=== PATIENT | female | born 1950 | race Two or more races ===

== ENCOUNTER 2017-02-23 15:22 | Inpatient (IN) | payer MEDICARE, OTHER ==
[2017-02-23] MEDS ORDERED: SODIUM CHLORIDE 0.9% 1,000 ML ONE ×4 (15:35→17:41)
[2017-02-23 16:09] LABS: ABSOLUTE NEUTROPHIL COUNT 27.7 K/mm3 (1.8-7.7); BASO % 0.1 % (0.2-1.0); EOS % 0.1 % (0.9-2.9); HEMATOCRIT 30.6 % (37.0-47.0); HEMOGLOBIN 10.2 gm/l (12.0-16.0); IMM NEUT # 5.2 K/mm3 (0-0.2); IMM NEUT% 13.8 % (0-1); LYMPH # 4.3 (1.0-4.8); LYMPH % 11.3 % (15-45); MEAN CELL VOLUME 92.2 fl (81.0-99.0); MEAN CORPUSCULAR HEMOGLOBIN 30.7 pg (27.0-31.0); MEAN CORPUSCULAR HGB CONC 33.3 g/dl (33.0-37.0); MEAN PLATELET VOLUME 10.2 fl (7.4-10.4); MONO # 0.3 (0.0-0.8); MONO % 0.9 % (4-12); NEUT % 73.8 % (43-75); PLATELET COUNT 201 K/mm3 (130-400); RED CELL DISTRIBUTION WIDTH 19.9 % (11.5-14.5)
[2017-02-23 16:13] LABS: INR 0.96; PROTHROMBIN TIME 10.1 SECONDS (9.3-11.4)
[2017-02-23 16:24] LABS: ALB/GLOB RATIO 1.2 (>1.0); ALBUMIN 3.6 gm/dL (3.5-5.7); CALCIUM 8.7 mg/dL (8.6-10.3)
[2017-02-23] MEDS ORDERED: Cefepime HCl 2 G in NS 0.9% (MINI-BAG PLUS) 50 ML IV ONE ×2 (16:45→17:45)
[2017-02-23] MEDS ORDERED: Cefepime HCl 2 G in SODIUM CHLORIDE 0.9% 50 ML IV ONE (16:45)
[2017-02-23 17:09] LABS: SPECIFIC GRAVITY 1.015 (1.001-1.030); URINE BILIRUBIN NEGATIVE (NEGATIVE); URINE BLOOD 1+ (NEGATIVE); URINE GLUCOSE (UA) NEGATIVE (NEGATIVE); URINE LEUKOCYTE ESTERASE TRACE (NEGATIVE); URINE NITRITE NEGATIVE (NEGATIVE); URINE PROTEIN 2+ (NEGATIVE); URINE UROBILINOGEN NORMAL (0-1 mg/dl)
[2017-02-23 17:11] LABS: URINE APPEARANCE HAZY; URINE COLOR YELLOW
[2017-02-23 17:22] LABS: URINE BACTERIA 2+; URINE RBC 0-1 /hpf; URINE WBC 30-40 /hpf
--- NOTE | 2017-02-23 17:32 | RAD ---
CHEST-AP BEDSIDE COMPARISON: Chest 2 views, 04/17/2016 HISTORY: Dizziness and rapid heart rate. FINDINGS: Views: Frontal chest. Lungs: Lungs are clear. Heart and vessels: Normal Trachea and bronchi: Normal Mediastinum and tino: Normal Costophrenic sulci: Normal Chest wall and bones: Surgical clips in the right chest. There is a Port-A-Cath. Upper abdomen: Normal. IMPRESSION: No acute finding. There is a Port-A-Cath in expected position.
[2017-02-23] MEDS ORDERED: MAGNESIUM HYDROXIDE 30 ML UDCUP PO PRN (17:39)
[2017-02-23] MEDS ORDERED: SODIUM CHLORIDE 0.9% 100 ML IV PRN (17:39)
[2017-02-23] MEDS ORDERED: BLISTEX LIPSTICK 1 EACH TP PRN (17:39)
[2017-02-23] MEDS ORDERED: BISACODYL 10 MG SUP PR PRN (17:39)
[2017-02-23] MEDS ORDERED: MENTHOL/CETYLPYRD 1 EACH LOZENGE PO PRN (17:39)
[2017-02-23] MEDS ORDERED: BISACODYL 5 MG TABLET.EC PO PRN (17:39)
[2017-02-23] MEDS ORDERED: PUMP TUBING ONE ×3 (17:41→22:17)
[2017-02-23] MEDS ORDERED: SODIUM CHLORIDE 0.9% 1,000 ML IV SCH ×2 (17:51→21:15)
[2017-02-23 17:56] LABS: ANISOCYTOSIS 1+; BAND 4 % (0-10); BASOPHIL 0 % (0-1); EOSINOPHIL 0 % (1-3); LYMPHOCYTE 14 % (15-45); MONOCYTE 2 % (4-12); NEUTROPHILS 71 % (43-75); PLATELET ESTIMATE NORMAL (NORMAL); TOTAL CELLS COUNTED 100
[2017-02-23 17:57] LABS: METAMYELOCYTE 9 %; NUCLEATED RED BLOOD CELL 1 /100 WBC; ORDER PATH REVIEW YES
[2017-02-23 17:58] VITALS: BMI 28.0
[2017-02-23] MEDS ORDERED: MAGNESIUM SULFATE 2 G/50 ML 2 G in Premix (Water) 50 ml 1 EACH IV ONE (18:10)
[2017-02-23] MEDS: SODIUM CHLORIDE 0.9% 1,000 ML IV SCH (18:15)
[2017-02-23] MEDS ORDERED: ONDANSETRON 4 MG/2ML 2 ML VIAL IV PRN (18:21)
[2017-02-23] MEDS: ENOXAPARIN SODIUM 40 MG/0.4 ML SYRINGE SUB-Q SCH (19:16)
[2017-02-23 20:40] LABS: CALCIUM 7.5 mg/dL (8.6-10.3)
[2017-02-23] MEDS: BUSPIRONE HCL 5 MG TABLET PO SCH (20:44)
[2017-02-23] MEDS: ACETAMINOPHEN 325 MG TABLET PO PRN (20:44)
[2017-02-23] MEDS ORDERED: VANCOMYCIN HCL 0 G in SODIUM CHLORIDE 0.9% 250 ML IV SCH (21:15)
[2017-02-23] MEDS ORDERED: VANCOMYCIN HCL 1.5 G in SODIUM CHLORIDE 0.9% 500 ML IV ONE (22:00)
[2017-02-23] MEDS: [UNRECOGNIZED DRUG - OTHER] PO PRN (22:20)
[2017-02-23] MEDS: NOREPINEPHRINE BITARTRATE 4 MG in D5W 246 ML IV PRN (22:20)
[2017-02-23] MEDS: ATROP PO PRN (22:20)
[2017-02-23] MEDS: MUPIROCIN CALCIUM 2% OINT 22 APPLIC/22 G TUBE TP SCH (22:48)
[2017-02-24] MEDS: [UNRECOGNIZED DRUG - OTHER] PO PRN ×2 (02:03→05:54)
[2017-02-24] MEDS: ATROP PO PRN ×2 (02:03→05:54)
[2017-02-24] MEDS: SODIUM CHLORIDE 0.9% 1,000 ML IV SCH ×3 (02:41→18:10)
[2017-02-24 05:50] LABS: ABSOLUTE NEUTROPHIL COUNT 20.3 K/mm3 (1.8-7.7); BASO % 0.1 % (0.2-1.0); EOS # 0.1 (0.0-0.5); EOS % 0.3 % (0.9-2.9); HEMATOCRIT 25.5 % (37.0-47.0); HEMOGLOBIN 8.5 gm/l (12.0-16.0); IMM NEUT # 6.5 K/mm3 (0-0.2); IMM NEUT% 21.6 % (0-1); LYMPH # 2.6 (1.0-4.8); LYMPH % 8.8 % (15-45); MEAN CELL VOLUME 93.1 fl (81.0-99.0); MEAN CORPUSCULAR HGB CONC 33.3 g/dl (33.0-37.0); MEAN PLATELET VOLUME 10.6 fl (7.4-10.4); MONO # 0.5 (0.0-0.8); MONO % 1.7 % (4-12); NEUT % 67.5 % (43-75); PLATELET COUNT 175 K/mm3 (130-400); RED CELL DISTRIBUTION WIDTH 19.9 % (11.5-14.5)
[2017-02-24] MEDS: Cefepime HCl 1 G in NS 0.9% (MINI-BAG PLUS) 50 ML IV SCH ×2 (05:53→17:25)
[2017-02-24 06:19] LABS: ALB/GLOB RATIO 1.2 (>1.0); CALCIUM 7.7 mg/dL (8.6-10.3)
[2017-02-24 06:55] LABS: ANISOCYTOSIS 3+; BAND 4 % (0-10); BASOPHIL 0 % (0-1); EOSINOPHIL 0 % (1-3); LYMPHOCYTE 9 % (15-45); MONOCYTE 3 % (4-12); NEUTROPHILS 84 % (43-75); PLATELET ESTIMATE NORMAL (NORMAL); TOTAL CELLS COUNTED 100
[2017-02-24] MEDS: NOREPINEPHRINE BITARTRATE 4 MG in D5W 246 ML IV PRN ×3 (07:38→14:20)
--- NOTE | 2017-02-24 08:03 | PDOC43 ---
- Subjective Chief Complaint: Sepsis Subjective: Reports Pain Tolerable, Reports Fever, Denies Abdominal Pain, Denies Nausea, Denies Vomiting - Objective Vital Signs Temperature 98.6 F 02/24/17 07:12 Pulse Rate 63 02/24/17 07:12 Respiratory Rate 17 02/24/17 07:12 Blood Pressure 108/62 02/24/17 07:12 O2 Saturation by Pulse Oximetry 99 02/24/17 07:12 Oxygen Delivery Method Nasal Cannula Oxygen Flow Rate 1 Intake and Output 02/22/17 02/23/17 02/24/17 23:59 23:59 23:59 Intake Total 3500 3159 Output Total 965 2050 Balance 2535 1109 General: Alert, Oriented x3, Cooperative, No Acute Distress Lungs: Clear to Auscultation Bilaterally, Normal Air Movement, Diminished at Bases Cardiovascular: Regular Rate and Rhythm, Normal S1, Normal S2 Abdomen: Soft, Tenderness, Normal Bowel Sounds Extremities: Normal Cap Refill, Normal Pulses, No Edema Skin: Normal Color, Warm, Dry Psych/Mental Status: Normal Affect, Normal Mood Laboratory 02/24/17 05:15 02/24/17 05:15 02/24/17 02/24/17 02/23/17 07:08 05:15 20:47 RBC 2.74 L RDW 19.9 H Estimated GFR 124 H POC Capillary Glucose 125 H 138 H Calcium 7.7 L Magnesium 1.4 L Total Protein 5.5 L Albumin 3.0 L % Immature Granulocyt 21.6 H 02/23/17 20:04 RBC RDW Estimated GFR 100 H POC Capillary Glucose Calcium 7.5 L Magnesium Total Protein Albumin % Immature Granulocyt Current Medications: Current meds reviewed in EMR. - Problems: Assessment/Plan (1) Cellulitis Qualifiers: Site of cellulitis: other site Qualifier Code: (L03.818) Cellulitis of other sites Status: AcuteAssessment/Plan: Umbilicus Broadly covered given sepsis, apslenia and chemotherapy (2) Chemotherapy induced diarrhea Status: AcuteAssessment/Plan: Has lomotil prn (3) Chemotherapy induced nausea and vomiting Status: AcuteAssessment/Plan: Has prn Zofran (4) Complicated UTI (urinary tract infection) Status: AcuteAssessment/Plan: Complicated by immuncompromise. Broad coverage with Cefepime, culture pending (5) Hypomagnesemia Status: AcuteAssessment/Plan: replete prn (6) Sepsis Qualifiers: Sepsis type: sepsis due to unspecified organism Qualifier Code: (A41.9 ) Sepsis, unspecified organism Status: AcuteAssessment/Plan: Support pressures, broad antibiotic coverage, lactate has now resolved (7) Asplenia Status: Chronic (8) Diabetes type 2, controlled Status: ChronicAssessment/Plan: SSI for now. Home actos, metformin held (9) Paroxysmal SVT (supraventricular tachycardia) Status: ChronicAssessment/Plan: currently sinus VTE Prophylaxis: ICP, Lovenox Disposition: ICU through today, likely step down to MS tomorrow and then d/c in 1-3 days depending on cultures and condition
[2017-02-24] MEDS: BUSPIRONE HCL 5 MG TABLET PO SCH ×2 (08:23→20:09)
[2017-02-24] MEDS: MUPIROCIN CALCIUM 2% OINT 22 APPLIC/22 G TUBE TP SCH ×3 (08:39→20:10)
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
[2017-02-24] MEDS ORDERED: MAGNESIUM SULFATE 2 G/50 ML 2 G in Premix (Water) 50 ml 1 EACH IV ONE (09:00)
[2017-02-24] MEDS ORDERED: PNEUMOCOCCAL 23-VAL P-SAC VAC 0.5 ML VIAL IM V ONE (09:00)
[2017-02-24] MEDS: INSULIN ASPART (DOSE) 100 UNITS/1 ML SUB-Q PRN ×2 (11:05→17:25)
[2017-02-24] MEDS: ACETAMINOPHEN 325 MG TABLET PO PRN (11:48)
[2017-02-24] MEDS: ENOXAPARIN SODIUM 40 MG/0.4 ML SYRINGE SUB-Q SCH (17:00)
--- NOTE | 2017-02-24 20:16 | PDOC36 ---
Provider Note Subject: SVT Note: Informed of episode x 40 s of SVT, up to 180. Pt reports having some similar episodes at home at times. She reports not feeling particularly bad, just noting a rapid HR. Pt has received 2 g x 2 of Magnesium, plus 8L of fluids. Patient reports she is feeling fine currently (and eager to go home), but has had more of these tachycardic episodes since starting chemotherapy. Did have an echo 3+ mo ago, possibly another more recently. She had been on atenolol, but this was stopped due to low BP on admission. She is still on Levophed, currently at 1 mcg/min, (SVT occurred when she was at 2 mcg/min). Will recheck BMP, TSH, Mg, CXR. Check BNP, echo, and troponin, keeping aware that the SVT or chemo could raise troponin. Discussed with Dr Brown, he notes that the more common side effects of her chemo would be gastroenterologic/ dehydration related. Patient has had significant IV fluids both days, and today's urinary output appears good as well. Will add low dose metoprolol (her atenolol was held on admission) to try to address SVT.
--- NOTE | 2017-02-24 20:21 | RAD ---
EXAMINATION : CHEST-AP BEDSIDE HISTORY: Elevated white count. Supraventricular tachycardia. COMPARISONS: 02/23/2017. FINDINGS: The cardiomediastinal silhouette is unaltered. No acute infiltrate is identified. Blunting of left costophrenic sulcus is similar to the prior study. The osseous structures are within normal limits. Vascular catheter is stable in position. IMPRESSION: Stable findings in the chest with no acute process identified. Slight effacement of the left costophrenic sulcus which may reflect a small effusion versus peripheral scarring is unaltered.
[2017-02-24 20:49] LABS: CALCIUM 8.2 mg/dL (8.6-10.3); MAGNESIUM 1.9 mg/dL (1.9-2.7)
[2017-02-24] MEDS: METOPROLOL TARTRATE 25 MG TABLET PO SCH (20:50)
[2017-02-24] MEDS ORDERED: POTASSIUM CHLORIDE 40 MEQ in SODIUM CHLORIDE 0.9% 500 ML IV ONE (21:21)
[2017-02-24] MEDS ORDERED: PUMP TUBING ONE (21:48)
[2017-02-24] MEDS: VANCOMYCIN HCL 1.25 G in SODIUM CHLORIDE 0.9% 250 ML IV SCH (21:52)
[2017-02-25] MEDS ORDERED: ALBUTEROL NEB 2.5 MG/3 ML VIAL.NEB NEB ONE (01:17)
[2017-02-25] MEDS ORDERED: GUAIFENESIN 100 MG/5 ML PO PRN (01:20)
[2017-02-25] MEDS: ALBUTEROL NEB 2.5 MG/3 ML VIAL.NEB NEB PRN ×4 (01:24→21:50)
[2017-02-25] MEDS: Cefepime HCl 1 G in NS 0.9% (MINI-BAG PLUS) 50 ML IV SCH ×2 (05:07→17:01)
[2017-02-25 05:21] LABS: ABSOLUTE NEUTROPHIL COUNT 10.4 K/mm3 (1.8-7.7); BASO % 0.1 % (0.2-1.0); EOS # 0.1 (0.0-0.5); EOS % 0.8 % (0.9-2.9); HEMATOCRIT 23.4 % (37.0-47.0); IMM NEUT # 0.2 K/mm3 (0-0.2); IMM NEUT% 1.1 % (0-1); LYMPH # 2.4 (1.0-4.8); LYMPH % 17.8 % (15-45); MEAN CELL VOLUME 91.4 fl (81.0-99.0); MEAN CORPUSCULAR HEMOGLOBIN 31.3 pg (27.0-31.0); MEAN CORPUSCULAR HGB CONC 34.2 g/dl (33.0-37.0); MEAN PLATELET VOLUME 10.2 fl (7.4-10.4); MONO # 0.3 (0.0-0.8); MONO % 2.4 % (4-12); NEUT % 77.8 % (43-75); PLATELET COUNT 172 K/mm3 (130-400); RED CELL DISTRIBUTION WIDTH 19.6 % (11.5-14.5)
[2017-02-25 05:45] LABS: CALCIUM 8.3 mg/dL (8.6-10.3); MAGNESIUM 1.5 mg/dL (1.9-2.7)
[2017-02-25] MEDS ORDERED: MAGNESIUM SULFATE 2 G/50 ML 2 G in Premix (Water) 50 ml 1 EACH IV ONE (06:23)
[2017-02-25] MEDS ORDERED: ATROP PO PRN ×2 (06:24→06:49)
[2017-02-25] MEDS ORDERED: [UNRECOGNIZED DRUG - OTHER] PO PRN ×2 (06:24→06:49)
[2017-02-25] MEDS: SODIUM CHLORIDE 0.9% 1,000 ML IV SCH (06:26)
[2017-02-25 06:32] LABS: ANISOCYTOSIS 2+; BAND 7 % (0-10); BASOPHIL 0 % (0-1); EOSINOPHIL 0 % (1-3); LYMPHOCYTE 31 % (15-45); MONOCYTE 2 % (4-12); NEUTROPHILS 60 % (43-75); PLATELET ESTIMATE NORMAL (NORMAL); TOTAL CELLS COUNTED 100
--- NOTE | 2017-02-25 06:47 | PDOC43 ---
- Subjective Chief Complaint: Sepsis in setting of chemotherapy RN reports pt off levophed >8hr, has had some good improvement in cough with nebulizer. Pt would like Vega out. Taking orals well, still on IV NS at 125. Pt has not had further marked tachycardia (had been up to 180s), seems to have tolerated the metoprolol fine. Also got IV rider potassium, Mg yesterday. Patient reports feeling well, is eager to go home. Does note some L foot pain in heel and 5th metatarsal. - Objective Vital Signs Temperature 99.2 F 02/25/17 06:00 Pulse Rate 85 02/25/17 06:03 Respiratory Rate 18 02/25/17 06:03 Blood Pressure 92/49 02/25/17 06:00 O2 Saturation by Pulse Oximetry 100 02/25/17 06:03 Oxygen Delivery Method Nasal Cannula Oxygen Flow Rate 1 Vital Signs Last 12 Hours Temp Pulse Resp BP Pulse Ox 02/25/17 06:03 85 18 100 02/25/17 06:00 99.2 F 88 20 92/49 98 02/25/17 05:30 99 F 80 14 113/53 98 02/25/17 05:00 99 F 75 15 108/50 97 02/25/17 04:00 99.1 F 68 15 101/56 100 02/25/17 03:00 99.1 F 69 15 116/47 99 02/25/17 02:00 99.3 F 70 16 100/48 95 02/25/17 01:36 99.5 F 78 18 97 02/25/17 01:21 79 12 99 02/25/17 01:00 99.3 F 82 18 114/47 100 02/25/17 00:35 99.3 F 73 17 106/52 98 02/25/17 00:00 99.2 F 80 15 109/55 100 02/24/17 23:34 99.1 F 70 16 106/51 100 02/24/17 23:00 99.2 F 73 16 117/52 98 02/24/17 22:41 99.2 F 74 18 114/56 98 02/24/17 22:00 99.4 F 83 16 100/53 97 02/24/17 21:14 82 17 96 02/24/17 21:00 99.5 F 90 18 102/57 90 02/24/17 20:36 100 02/24/17 20:00 97 18 107/88 100 02/24/17 19:50 18 02/24/17 19:00 98.9 F 72 16 100/50 99 Intake and Output 02/23/17 02/24/17 02/25/17 23:59 23:59 23:59 Intake Total 3500 5301 2020 Output Total 965 4825 3050 Balance 2532 437 -1027 Intake & Output 02/24/17 02/24/17 02/25/17 15:59 23:59 07:59 Intake Total 54 2087 2020 Output Total 1575 1200 3050 Balance -1521 888 -1029 Intake: PO Intake 200 IV Fluids 54 2087 1820 Output: Vega Output 1575 1200 3050 Other: Unmeasured Stool Amount Medium Small Number of Stools 1 1 General: Alert, Cooperative, No Acute Distress HEENT: Atraumatic Lungs: Other (expir wheeze noted bilat.NO crackles heard.) Cardiovascular: Regular Rate and Rhythm, No Murmur Abdomen: Soft, Normal Bowel Sounds, Other (small (<1 cm) break in skin, linear appearing erosion, oriented vertically, inf to umbilicus. Mild erythema noted, mupirocin on. No fluctuance or abscess evident.), No Tenderness Extremities: Other (Mild tinea, but no redness, no bony abnormality, no swelling evident.), No Edema (no edema to trace edema bilat lower extrem.) Skin: Normal Color (sl pale, c/w anemia.) Neurological: Normal Speech Psych/Mental Status: Normal Affect, Other (very upbeat, very pleasant) Laboratory 02/25/17 05:00 02/25/17 05:00 02/25/17 02/24/17 02/24/17 05:00 20:50 20:20 RBC 2.56 L MCH 31.3 H RDW 19.6 H BUN 5 L Estimated GFR 223 H POC Capillary Glucose 103 H Calcium 8.3 L Magnesium 1.5 L B-Natriuretic Peptide 123 H Total Protein Albumin % Immature Granulocyt 1.1 H 02/24/17 02/24/17 02/24/17 19:40 17:13 10:53 RBC MCH RDW BUN Estimated GFR 124 H POC Capillary Glucose 179 H 170 H Calcium 8.2 L Magnesium B-Natriuretic Peptide Total Protein Albumin % Immature Granulocyt 02/24/17 02/24/17 07:08 05:15 RBC MCH RDW BUN Estimated GFR 124 H POC Capillary Glucose 125 H Calcium 7.7 L Magnesium 1.4 L B-Natriuretic Peptide Total Protein 5.5 L Albumin 3.0 L % Immature Granulocyt Current Medications: Current meds reviewed in EMR. Active Medications Acetaminophen (Tylenol) 650 mg PO Q6H PRN PRN Reason: Pain or Temperature > 100.5 F Last Admin: 02/24/17 11:48 Dose: 650 mg Albuterol Sulfate (Ventolin Inhalation Solution (Dose)) 2.5 mg NEB Q4H PRN PRN Reason: Wheezing Last Admin: 02/25/17 06:03 Dose: 2.5 mg Benzocaine/Menthol (Cepacol) 1 each PO PRN PRN PRN Reason: Sore Throat Bisacodyl (Dulcolax) 10 mg UT DAILY PRN PRN Reason: Constipation Bisacodyl (Dulcolax) 5 mg PO DAILY PRN PRN Reason: Constipation Buspirone HCl (Buspar) 15 mg PO BID [facility] Last Admin: 02/24/17 20:09 Dose: 15 mg Diphenoxylate HCl/Atropine (Lomotil) 1 each PO Q4H PRN PRN Reason: Diarrhea Last Admin: 02/24/17 05:54 Dose: 1 each Enoxaparin Sodium (Lovenox) 40 mg SUB-Q Q24H [facility] Last Admin: 02/24/17 17:00 Dose: 40 mg Guaifenesin (Robitussin) 5 - 10 ml PO Q4H PRN PRN Reason: Cough Norepinephrine Bitartrate 4 mg (/ Dextrose) 250 mls @ 15 mls/hr IV .PER PROTOCOL PRN; Protocol; 4 MCG/MIN PRN Reason: Hypotension Last Titration: 02/24/17 20:01 Dose: 0 mcg/min Sodium Chloride (Sodium Chloride 0.9%) 100 mls @ 25 mls/hr IV PRN PRN PRN Reason: Flush Last Admin: 02/23/17 22:15 Dose: 25 mls/hr Sodium Chloride (Sodium Chloride 0.9%) 1,000 mls @ 125 mls/hr IV .Q8H [facility] Last Admin: 02/24/17 18:10 Dose: 125 mls/hr Cefepime HCl 1 g/ NS 0.9% ( (MINI-BAG PLUS)) 50 mls @ 100 mls/hr IV Q12H [facility] Last Admin: 02/25/17 05:07 Dose: 100 mls/hr Vancomycin HCl 1.25 g/ Sodium (Chloride) 275 mls @ 183.333 mls/hr IV Q24H [facility] Last Admin: 02/24/17 21:52 Dose: 183.333 mls/hr Insulin Aspart (Novolog (Dose)) 0 units SUB-Q WM/BEDTIME PRN; Protocol PRN Reason: Blood Sugar > Last Admin: 02/24/17 17:25 Dose: 3 units Magnesium Hydroxide (Milk Of Magnesia) 30 ml PO DAILY PRN PRN Reason: Constipation Metoprolol Tartrate (Lopressor) 12.5 mg PO BID [facility] Last Admin: 02/24/17 20:50 Dose: 12.5 mg Mupirocin (Bactroban) 1 applic TP TID [facility] Last Admin: 02/24/17 20:10 Dose: 1 applic Ondansetron HCl (Zofran) 4 mg IV Q6H PRN PRN Reason: Nausea/Vomiting Petrolatum/Paraffin/Mineral Oil (Blistex) 1 each TP PRN PRN PRN Reason: Dry and/or chapped lips Sodium Chloride (Normal Saline 10ml Flush) 10 - 50 ml IV PRN PRN PRN Reason: IV Flush Last Admin: 02/23/17 22:14 Dose: 40 ml Sodium Chloride (Normal Saline 10ml Flush) 10 ml IV Q8HR [facility] Last Admin: 02/25/17 01:14 Dose: 10 ml - Problems: Assessment/Plan (1) Sepsis Qualifiers: Sepsis type: Escherichia coli Qualifier Code: (A41.51) Sepsis due to Escherichia coli [E. coli] Status: AcuteAssessment/Plan: with severe sepsis and septic shock. Now off pressors, continuing broad antibiotic coverage, (2) Adenocarcinoma of left breast Status: AcuteAssessment/Plan: On chemotherapy for breast cancer. Appreciate Dr Brown/oncology care. (3) Complicated UTI (urinary tract infection) Status: AcuteAssessment/Plan: with resolving severe sepsis and septic shock, now improved, off pressors. Complicated by immuncompromise/chemotherapy. Broad coverage with Cefepime, started 02/24 culture shows E coli, sensitivity pending. Clinically better, Remove Vega (4) Cellulitis Qualifiers: Site of cellulitis: other site Qualifier Code: (L03.818) Cellulitis of other sites Status: AcuteAssessment/Plan: Suspected bacterial Umbilicus; not cultured Broadly covered given sepsis, apslenia and chemotherapy On Vanco plus cefepime and topical mupirocin. (5) Chemotherapy induced diarrhea Status: AcuteAssessment/Plan: Has lomotil prn. Pt requests higher dose, which is what she takes at home. Will allow higher dose. (6) Hypomagnesemia Status: AcuteAssessment/Plan: replete prn. Suspect losses due to GI effects of chemo (7) Hypotension (arterial) Qualifiers: Hypotension type: other hypotension type Qualifier Code: (I95.89) Other hypotension Status: ResolvedAssessment/Plan: DUe to severe sepsis/septic shock; now improved. Off pressors >8 hours. Stopped IVF due to concern for fluid overload. Good urine output noted from yesterday. (8) Diabetes type 2, controlled Status: ChronicAssessment/Plan: SSI for now. Home actos, metformin held. BG doing well. (9) Paroxysmal SVT (supraventricular tachycardia) Status: ChronicAssessment/Plan: currently sinus rhythm, improved; no further episodes since yest pm. Given K, Mg, and cautious use of metoprolol. Anticipate pt would resume atenolol later. (10) Anemia Qualifiers: Anemia type: other cause Other causes of anemia: antineoplastic chemotherapy Qualifier Code: (D64.81) Anemia due to antineoplastic chemotherapy Status: AcuteAssessment/Plan: Patient with anemia, acute , attributed to chemotherapy plus dilution from fluid resuscitation. Hb 8 this am, will recheck tomorrow am. VTE Prophylaxis: ICP, Lovenox Disposition: ICU currently, likely step down to MS later today if can continue off pressors. Hope to d/c in 1-3 days.
[2017-02-25] MEDS ORDERED: WATER IV SCH (07:00)
[2017-02-25] MEDS ORDERED: MAGNESIUM SULFATE IV SCH (07:00)
[2017-02-25] MEDS: BUSPIRONE HCL 5 MG TABLET PO SCH ×2 (08:00→20:45)
[2017-02-25] MEDS: MUPIROCIN CALCIUM 2% OINT 22 APPLIC/22 G TUBE TP SCH ×3 (08:01→20:46)
[2017-02-25] MEDS: METOPROLOL TARTRATE 25 MG TABLET PO SCH ×2 (08:01→20:45)
[2017-02-25] MEDS ORDERED: MUPIROCIN CALCIUM 2% OINT 22 APPLIC/22 G TUBE TP SCH (10:15)
[2017-02-25] MEDS: INSULIN ASPART (DOSE) 100 UNITS/1 ML SUB-Q PRN (11:39)
--- NOTE | 2017-02-25 14:12 | SURGPATH ---
[facility] [address] [place] [id number] Patient Name: LUCIO MILLS MR#: [id number] : 1950 Gender: F Specimen #: [id number] Collected: 02/23/2017 Received: 02/25/2017 Reported: 02/25/2017 Submitting Phys: KIM CASTANON Copy To Phys: [facility] ADRIANE ANDERSON Clinical History / Pre-Operative Diagnosis: Specimen Source / Surgical Procedure Performed: Interpretation: PERIPHERAL BLOOD: - GRANULOCYTOSIS WITH LEFT SHIFT AND DYSMORPHIC GRANULOCYTES (SEE COMMENT) - MILD ANEMIA Comment: A reactive or infectious processes favored. The dysmorphic features seen in the granulocytes may be reactive or infectious in nature however the changes may also be it sales representative of medication affects. Electronically Signed Out Jah Henry M.D. Gross Description: PERIPHERAL BLOOD SMEAR:RECEIVED 2 UNSTAINED SMEARS Microscopic Description: The CBC data shows a white blood cell count of 37.54 with 73.8% neutrophils, 11.3% lymphocytes, 0.9% monocytes, 0.1% eosinophils and 0.1% basophils. There are 13.8% immature granulocytes. The hemoglobin is 10.2 and a hematocrit is 30.6. The platelet count is 201,000. The red blood cells are decreased in number and exhibit mild anisopoikilocytosis. The white blood cells are increased in number with a granulocytosis. The lymphocytes are mature and exhibit normal morphology. The granulocytes are left shifted. Frequent bilobed neutrophils are present. The platelets are within normal range and exhibit normal morphology. 1: [id number] D72.828
[2017-02-25] MEDS: ENOXAPARIN SODIUM 40 MG/0.4 ML SYRINGE SUB-Q SCH (17:00)
[2017-02-25] MEDS ORDERED: Heparin Sodium Flush 500 unit/5 ml syringe ONE (19:15)
[2017-02-25] MEDS ORDERED: Heparin Sodium Flush 500 unit/5 ml syringe IV PRN (19:22)
[2017-02-25] MEDS: VANCOMYCIN HCL 1.25 G in SODIUM CHLORIDE 0.9% 250 ML IV SCH (21:26)
[2017-02-26] MEDS: Heparin Sodium Flush 500 unit/5 ml syringe IV PRN ×4 (00:20→11:01)
[2017-02-26] MEDS: Cefepime HCl 1 G in NS 0.9% (MINI-BAG PLUS) 50 ML IV SCH (06:14)
[2017-02-26 06:48] LABS: I-STAT CHLORIDE 97 mEq/L (101-111); I-STAT CREATININE 0.4 mg/dL (0.6-1.3); I-STAT GLUCOSE 110 mg/dL (70-105); I-STAT TCO2 26 mEq/L (21-31)
[2017-02-26 06:54] LABS: ABSOLUTE NEUTROPHIL COUNT 4.5 K/mm3 (1.8-7.7); BASO # 0.1 K/mm3 (0.0-0.2); EOS # 0.3 (0.0-0.5); HEMATOCRIT 26.1 % (37.0-47.0); HEMOGLOBIN 8.6 gm/l (12.0-16.0); IMM NEUT # 0.1 K/mm3 (0-0.2); IMM NEUT% 0.8 % (0-1); LYMPH # 3.3 (1.0-4.8); LYMPH % 36.6 % (15-45); MEAN CELL VOLUME 91.6 fl (81.0-99.0); MEAN CORPUSCULAR HEMOGLOBIN 30.2 pg (27.0-31.0); MEAN PLATELET VOLUME 10.9 fl (7.4-10.4); MONO # 0.8 (0.0-0.8); MONO % 8.6 % (4-12); PLATELET COUNT 214 K/mm3 (130-400); RED CELL DISTRIBUTION WIDTH 19.7 % (11.5-14.5)
[2017-02-26 07:17] VITALS: BP 127/61
[2017-02-26] MEDS: BUSPIRONE HCL 5 MG TABLET PO SCH (08:24)
[2017-02-26] MEDS: METOPROLOL TARTRATE 25 MG TABLET PO SCH (08:24)
[2017-02-26] MEDS: MUPIROCIN CALCIUM 2% OINT 22 APPLIC/22 G TUBE TP SCH (09:02)
[2017-02-26 09:59] LABS: ATYPICAL LYMPHOCYTE 7 %; BAND 6 % (0-10); EOSINOPHIL 2 % (1-3); LYMPHOCYTE 31 % (15-45); MONOCYTE 3 % (4-12); NEUTROPHILS 51 % (43-75); TOTAL CELLS COUNTED 100
[2017-02-26 10:00] LABS: ANISOCYTOSIS 2+; PLATELET ESTIMATE NORMAL (NORMAL); POIKILOCYTOSIS 1+
--- NOTE | 2017-02-26 10:06 | PDOC43 ---
- Subjective Chief Complaint: Sepsis, UTI in setting of chemotherapy. Patient reported to be doing well but did have a low sat (to 86% at 4:01 am) last night, given O2 at 1L with good response. No pain issues. Patient eager to go, but not a large appetite. Pt notes some cough but not worsening. Does note occasionally having some difficulty at night at home, but never dx with sleep apnea. - Objective Vital Signs Temperature 98 F 02/26/17 07:16 Pulse Rate 89 02/26/17 07:16 Respiratory Rate 19 02/26/17 07:16 Blood Pressure 127/61 02/26/17 07:16 O2 Saturation by Pulse Oximetry 96 02/26/17 07:16 Oxygen Delivery Method Room Air Oxygen Flow Rate 0 Vital Signs Last 12 Hours Temp Pulse Resp BP Pulse Ox 02/26/17 07:16 98 F 89 19 127/61 96 02/26/17 04:02 89 02/26/17 04:01 86 02/26/17 03:47 98.2 F 83 16 108/58 96 02/26/17 00:00 98.9 F 76 16 108/46 99 02/25/17 21:50 77 16 100 Intake and Output 02/24/17 02/25/17 02/26/17 23:59 23:59 23:59 Intake Total 5301 2924 350 Output Total 6482 5637 650 Balance 476 -2401 -300 General: Alert, Cooperative, No Acute Distress HEENT: Atraumatic Lungs: No Clear to Auscultation Bilaterally (bilat wheezes noted on expiration.) Cardiovascular: Regular Rate and Rhythm Abdomen: Soft, Normal Bowel Sounds, Non-Distended Extremities: No Edema, No Tenderness Neurological: Normal Speech Psych/Mental Status: Normal Affect, Normal Mood Laboratory 02/26/17 06:30 02/26/17 06:30 02/26/17 02/26/17 02/25/17 07:14 06:30 20:48 RBC 2.85 L RDW 19.7 H BUN < 3 L POC Capillary Glucose 125 H 181 H 02/25/17 02/25/17 17:20 11:27 RBC RDW BUN POC Capillary Glucose 109 H 233 H Mg pending this am. Current Medications: Current meds reviewed in EMR. Active Medications Acetaminophen (Tylenol) 650 mg PO Q6H PRN PRN Reason: Pain or Temperature > 100.5 F Last Admin: 02/24/17 11:48 Dose: 650 mg Albuterol Sulfate (Ventolin Inhalation Solution (Dose)) 2.5 mg NEB Q4H PRN PRN Reason: Wheezing Last Admin: 02/25/17 21:50 Dose: 2.5 mg Benzocaine/Menthol (Cepacol) 1 each PO PRN PRN PRN Reason: Sore Throat Bisacodyl (Dulcolax) 10 mg NE DAILY PRN PRN Reason: Constipation Bisacodyl (Dulcolax) 5 mg PO DAILY PRN PRN Reason: Constipation Buspirone HCl (Buspar) 15 mg PO BID [facility] Last Admin: 02/26/17 08:24 Dose: 15 mg Diphenoxylate HCl/Atropine (Lomotil) 1 each PO Q4H PRN PRN Reason: Diarrhea Enoxaparin Sodium (Lovenox) 40 mg SUB-Q Q24H [facility] Last Admin: 02/25/17 17:00 Dose: 40 mg Guaifenesin (Robitussin) 5 - 10 ml PO Q4H PRN PRN Reason: Cough Heparin Sodium (Beef Lung) (Heparin Sodium 500 Unit/5 Ml) 500 units IV Q4H PRN PRN Reason: PORT A CATH FLUSH, PT CARE Last Admin: 02/26/17 07:09 Dose: 500 units Cefepime HCl 1 g/ NS 0.9% ( (MINI-BAG PLUS)) 50 mls @ 100 mls/hr IV Q12H [facility] Last Admin: 02/26/17 06:14 Dose: 100 mls/hr Vancomycin HCl 1.25 g/ Sodium (Chloride) 275 mls @ 183.333 mls/hr IV Q24H [facility] Last Admin: 02/25/17 21:26 Dose: 183.333 mls/hr Insulin Aspart (Novolog (Dose)) 0 units SUB-Q WM/BEDTIME PRN; Protocol PRN Reason: Blood Sugar > Last Admin: 02/25/17 11:39 Dose: 5 units Magnesium Hydroxide (Milk Of Magnesia) 30 ml PO DAILY PRN PRN Reason: Constipation Metoprolol Tartrate (Lopressor) 12.5 mg PO BID [facility] Last Admin: 02/26/17 08:24 Dose: 12.5 mg Mupirocin (Bactroban) 1 applic TP TID [facility] Last Admin: 02/26/17 09:02 Dose: 1 applic Ondansetron HCl (Zofran) 4 mg IV Q6H PRN PRN Reason: Nausea/Vomiting Last Admin: 02/25/17 08:06 Dose: 4 mg Petrolatum/Paraffin/Mineral Oil (Blistex) 1 each TP PRN PRN PRN Reason: Dry and/or chapped lips Sodium Chloride (Normal Saline 10ml Flush) 10 - 50 ml IV PRN PRN PRN Reason: IV Flush Last Admin: 02/26/17 07:09 Dose: 10 ml Sodium Chloride (Normal Saline 10ml Flush) 10 ml IV Q8HR [facility] Last Admin: 02/26/17 08:24 Dose: 10 ml - Problems: Assessment/Plan (1) Sepsis Qualifiers: Sepsis type: Escherichia coli Qualifier Code: (A41.51) Sepsis due to Escherichia coli [E. coli] Status: ResolvedAssessment/Plan: with severe sepsis and septic shock, attributed to UTI with pansensitive E coli. Remains off pressors, plan to simplify antibiotic, and consider for DC today. (2) Adenocarcinoma of left breast Status: AcuteAssessment/Plan: On chemotherapy for breast cancer. Appreciate Dr Brown/oncology care. (3) Complicated UTI (urinary tract infection) Status: AcuteAssessment/Plan: with resolved severe sepsis and septic shock Complicated by immuncompromise/chemotherapy. Broad coverage with Cefepime, started 02/24 culture shows E coli, spansensitive. Clinically better, Vega out (4) Cellulitis Qualifiers: Site of cellulitis: other site Qualifier Code: (L03.818) Cellulitis of other sites Status: AcuteAssessment/Plan: Suspected bacterial, no abscess seen Umbilicus; not cultured Broadly covered given sepsis, apslenia and chemotherapy On Vanco plus cefepime and topical mupirocin, but plan to switch to just mupirocin for DC. (5) Chemotherapy induced diarrhea Status: AcuteAssessment/Plan: Has lomotil prn. Pt requests higher dose, which is what she takes at home. Will allow higher dose. (6) Hypomagnesemia Status: AcuteAssessment/Plan: replete prn. Suspect losses due to GI effects of chemo Will have her follow up with PCP/oncology about recheck labs. Would prefer to not replete aggressively due to possibility of worsening diarrhea. (7) Diabetes type 2, controlled Status: ChronicAssessment/Plan: SSI for now. Home actos, metformin held, but anticipate resumption later. (8) Paroxysmal SVT (supraventricular tachycardia) Status: ChronicAssessment/Plan: currently sinus rhythm, improved; no further episodes since yest pm. Given K, Mg, and will resume atenolol at DC (9) Anemia Qualifiers: Anemia type: other cause Other causes of anemia: antineoplastic chemotherapy Qualifier Code: (D64.81) Anemia due to antineoplastic chemotherapy Status: AcuteAssessment/Plan: Patient with anemia, acute , attributed to chemotherapy plus dilution from fluid resuscitation. Hb 8.6 this am, improved after clearance of large volume IVF given. (10) Hypoxia Status: AcuteAssessment/Plan: Patient with sl low oxygen during night. Suspect patient with some degree of sleep apnea, but some add'l wheezing attributed to (therapeutic) fluid overload. Anticipate sending home on nocturnal O2, but hope to see improvement over the next week or two. VTE Prophylaxis: ICP, Lovenox Disposition: Hope to d/c today.
--- NOTE | 2017-02-26 12:04 | DS ---
Brittany Johnson DISCHARGE DIAGNOSES: 1. Sepsis with septic shock associated with Escherichia coli urinary tract infection. 2. Recent chemotherapy for breast cancer. 3. Supraventricular tachycardia exacerbated by electrolyte disturbance. 4. Hypokalemia and hyponatremia both attributed to loose stools from chemotherapy. 5. Hypoxia. 6. Suspected underlying sleep apnea worsened by vigorous fluid administration. 7. Diabetes mellitus type 2. PROCEDURES: Echocardiogram showing on preliminary a preserved ejection fraction of 65%, no significant diastolic dysfunction. REASON FOR ADMISSION: The patient is a 66-year-old female who is undergoing chemotherapy for left breast cancer. After having a previous episode a number of years prior. She was receiving Carboplatin, Paclitaxel, Herceptin, and Perjeta and had received her last dose 02/11/2017 which was cycle four of six. She woke up feeling sicker which is common for her afterwards. She had been doing well until the morning of admission 02/24/2017 when she woke, took her regular medicines, and then by lunch time she went to get up and felt extremely tachycardic and chilled. She rested an hour to see if it resolved and because it did not she went to the emergency room. She denied dysuria, fever, abdominal pain, but did have an episode of emesis the previous day and a loose stool the morning of admission. She had also had some discomfort around her umbilicus which is new. On admission patient was noted to have an elevated white blood cell count 37.5, hemoglobin 10.2, RDW 201. Her INR is 1.96. Lactate 2.7. Chemistry profile sodium 131, potassium 3.8, BUN 26, creatinine 0.9, glucose 230, calcium 8.7, magnesium 1.5, bilirubin 1.1. Liver enzymes normal. Troponin less than 0.01. A urinalysis showed 30 to 40 white cells, trace leukocyte esterase, and a chest x-ray had shown no acute findings with the port-a-cath in expected position. She was noted to be relatively hypotensive with blood pressures down to 87/41 and temperature to 100.4 in the ICU although, on initial presentation in the emergency room she had been 71/48 with a temperature of 37.9. Heart rate was 92, respirations 16, saturation 97% on room air. She received vigorous IV fluid hydration for septic shock as well as was initiated on Levophed for this. She was thought to have two possible sources for infection that being a cellulitis noted infraumbilical and a urinary tract infection. She was placed on cefepime and vancomycin and had a good response to this and her Levaquin was able to be tapered and stopped on 02/24/2017. Her blood cultures remained negative and her urine culture showed what turned out to be castro sensitive E-coli. She remained afebrile after arriving in the ICU and her pressures improved and she remained stable after receiving the Levophed. She did have episodes of supraventricular tachycardia with heart rates up to 180 for up to 40 seconds at a time. Evaluation during that time showed a low magnesium as low as 1.4 and she received 2 gm on three different occasions and she also had some degree of low potassium as low as 3.1 which was treated with IV potassium riders as well. She was started on metoprolol cautiously due to just having been on the Levophed and between electrolyte replacement and metoprolol she did not have any significant recurrence of supraventricular tachycardia. She was noted to have some degree of hypoxia. She had some modest wheezing noted and a repeat chest x-ray performed 02/24/2017 showed stable findings in the chest with no acute process identified, slight effacement of the left costophrenic sulcus which may reflect a small effusion versus peripheral scarring identified. Her IV fluids were discontinued and she had a very vigorous urine output and she did well although, did have some hypoxia noted at night as low as 86% which was improved with oxygen supplementation. When awake she appears to be doing well and does not require this, but it is felt that she would benefit from oxygen supplementation overnight and did discuss consideration for possible follow up for sleep apnea.l She also underwent an echocardiogram which showed preserved ejection fraction and diastolic valvular dysfunction. By 02/26/2017 she was very eager for discharge and she was showing reasonably good appetite and good ambulation and her white blood cell count had improved from 37.5 on admission to 9.0. Hemoglobin was 10.2 on admission and reached a low of 8.0 on the , but actually improved to 8.6 after the fluid administration was ceased. Her platelet count remained normal. Her metformin and Actos were held during the hospitalization, but they are anticipated to be resumed. Blood sugar was 125 on 02/26. She also had other labs showing a BNP of 123. Her troponin both times during hospitalization were 0.01 or less and her TSH had been checked as well showing a 0.68. DISCHARGE MEDICATIONS: Her urine culture returned castro sensitive E-coli, so she is anticipated to be discharged to home on the following medications: 1. Albuterol sulfate 1 to 2 puffs inhaled every 4 hours as needed. 2. Amoxicillin 1000 mg by mouth twice daily. 3. Aspirin 81 mg daily. 4. Atenolol 50 mg by mouth daily. 5. Buspirone 15 mg by mouth twice daily. 6. Lisinopril 10 mg by mouth daily. 7. Lovastatin 20 mg at bedtime. 8. Metformin 850 mg by mouth twice daily with meals. 9. Mupirocin topically to the mild cellulitis on her abdomen three times daily. 10. Actos 3 mg by mouth daily. FOLLOWUP: She is scheduled to follow up with Aubrie Hendricks on 03/06/2017 at 1:30 p.m. and she will also be following up with oncologist, Dr. Brown in the next week or two although, she points out that she will be receiving chemotherapy later in the week ensures that her complications occur on the weekend which makes it difficult for her to follow up with her oncologist regarding any medical complications. DIET: As tolerated. ACTIVITY: As tolerated. CONDITION ON DISCHARGE: Good. Vital signs at the time of discharge are temperature 98, pulse 89, blood pressure 127/61, respirations 19, 96% saturation on room air while awake. JOB: [id number] CC: Dr. Kevin Hendricks,LEGAL ANALYST
[2017-02-26 13:20] LABS: ALB/GLOB RATIO 1.1 (>1.0); ALBUMIN 3.4 gm/dL (3.5-5.7); ALT/SGPT 10 U/L (7-52); BLOOD UREA NITROGEN 5 mg/dL (7-25); BUN/CREATININE RATIO 13 (6-20); CALCIUM 8.7 mg/dL (8.6-10.3); GLOMERULAR FILTRATION RATE 160 mL/min (60-85); MAGNESIUM 1.5 mg/dL (1.9-2.7)
[2017-02-26 17:04] LABS: BASOPHIL 0 % (0-1)
== END 2017-02-26 11:55 | disposition home or self-care (01) | DRG 871 ==
LOC: ED 15:22 → ICU 16:47
PROVIDERS: ADMIT Internal Medicine Hematology & Oncology; ATTEND Internal Medicine Hematology & Oncology
DX: A41.51 Sepsis due to Escherichia coli [E. coli] (principal); R65.21 Severe sepsis with septic shock; N39.0 Urinary tract infection, site not specified; I47.1 Supraventricular tachycardia; E87.1 Hypo-osmolality and hyponatremia; K52.1 Toxic gastroenteritis and colitis; Z51.11 Encounter for antineoplastic chemotherapy; E87.8 Other disorders of electrolyte and fluid balance, not elsewhere classified; E87.6 Hypokalemia; G47.30 Sleep apnea, unspecified; E11.9 Type 2 diabetes mellitus without complications; T45.1X5A Adverse effect of antineoplastic and immunosuppressive drugs, initial encounter; C50.912 Malignant neoplasm of unspecified site of left female breast; E83.42 Hypomagnesemia; I95.89 Other hypotension; D64.9 Anemia, unspecified